=== PATIENT | male | born 1970 | race Two or more races ===

== ENCOUNTER 2024-04-04 11:41 | Inpatient (IN) | payer OTHER ==
[2024-04-04 12:04] VITALS: BMI 19.8
[2024-04-04] MEDS ORDERED: guaiFENesin 600 MG TABLET.ER (FP) PO PRN (14:04)
[2024-04-04] MEDS ORDERED: IBUPROFEN 600 MG TABLET (FP) PO PRN (14:04)
[2024-04-04] MEDS ORDERED: POLYETHYLENE GLYCOL (HEALTHYLAX) 3350 17 GM PACKET PO PRN (14:04)
[2024-04-04] MEDS ORDERED: NALOXONE (NYS OPIOID OVERDOSE PROGRAM) 4 MG/0.1 ML SPRAY NS PRN (14:04)
[2024-04-04] MEDS ORDERED: ACETAMINOPHEN 325 MG TABLET (FP) PO PRN (14:04)
[2024-04-04] MEDS ORDERED: NALOXONE (NARCAN) HCL 4 MG/0.1 ML SPRAY NS PRN (14:04)
[2024-04-04] MEDS ORDERED: NICOTINE POLACRILEX 2 MG GUM BUC PRN (14:04)
[2024-04-04] MEDS ORDERED: MAGNESIUM HYDROX 2400MG/30ML ORAL SUSPENSION 30 ML CUP PO PRN (14:04)
[2024-04-04] MEDS ORDERED: NICOTINE POLACRILEX 2 MG LOZENGE BC PRN (14:04)
[2024-04-04] MEDS ORDERED: P-EPHED 60MG/TRIPROLIDI 2.5MG TABLET PO PRN (14:04)
[2024-04-04] MEDS ORDERED: MAG HYDROX/AL HYDROX/SIMETH 30 ML UNIT-DOSE CUP PO PRN (14:04)
[2024-04-04] MEDS ORDERED: LOPERAMIDE HCL 2 MG CAPSULE PO PRN (14:04)
[2024-04-04] MEDS ORDERED: BENZOCAINE/MENTHOL (CHLORASEPTIC ) LOZENGE MM PRN (14:04)
[2024-04-04] MEDS ORDERED: BENZONATATE 200 MG CAPSULE PO PRN (14:04)
[2024-04-04] MEDS: TUBERCULIN PPD 5 TU/0.1ML VIAL ID ONE (19:23)
[2024-04-04] MEDS: THIAMINE 100 MG TABLET PO SCH (23:24)
[2024-04-04] MEDS: MELATONIN 5 MG TABLETS PO SCH (23:24)
[2024-04-05] MEDS ORDERED: methaDONE HCL 10 MG TABLET PO SCH (08:15)
[2024-04-05] MEDS: PRENATAL VITAMINS W/ FOLIC ACID TABLET (FP) PO SCH (09:05)
[2024-04-05 15:05] LABS: HEMATOCRIT 46.5 % (35.4-49); MCHC 34.4 g/dl (32.0-35.9); MEAN CELL VOLUME 93.2 fl (80-96); MEAN PLT VOLUME 11.1 fl (7.5-11.1); PLATELET COUNT 224 10^3/uL (134-434); RBC 4.99 M/mm3 (4.00-5.60); RDW 12.3 % (11.9-15.9); WHITE BLOOD COUNT 6.5 K/mm3 (4.0-10.0)
[2024-04-05 15:18] LABS: CHLORIDE 104 mmol/L (98-107); POTASSIUM 5.1 mmol/L (3.5-5.1); SODIUM 137 mmol/L (136-145)
[2024-04-05 15:22] LABS: ALBUMIN 4.2 g/dl (3.4-5.0); ANION GAP 5 mmol/L (4-13); BLOOD UREA NITROGEN 9.8 mg/dL (7-18); CALCIUM 9.5 mg/dL (8.5-10.1); CO2 28 mmol/L (21-32); GLUCOSE,RANDOM 121 mg/dL (74-106)
[2024-04-05 15:25] LABS: CREATININE 0.6 mg/dL (0.55-1.3); SGOT/AST 16 U/L (15-37); SGPT/ALT 14 U/L (13-61)
[2024-04-05 15:27] LABS: BILIRUBIN,TOTAL 0.6 mg/dL (0.2-1); TOT PROT 8.6 g/dl (6.4-8.2)
[2024-04-05 15:28] LABS: ALK PHOS 106 U/L (45-117)
[2024-04-05 17:10] LABS: SYPHILIS W/ RPR CONF NON-REACTIVE (NONREACTIVE)
[2024-04-06] MEDS: DICYCLOMINE HCL 10 MG CAPSULE PO PRN (18:28)
[2024-04-06] MEDS: BACLOFEN 10 MG TABLET (FP) PO SCH (23:08)
[2024-04-07] MEDS: ONDANSETRON *ODT* 4 MG TABLET SL PRN (05:33)
[2024-04-07] MEDS: hydrOXYzine PAMOATE 25 MG CAPSULE (FP) PO PRN (06:27)
[2024-04-07] MEDS: TRIMETHOBENZAMIDE HCL 200MG/2ML INJ IM ONE (07:41)
[2024-04-07 09:38] VITALS: RESP 18
[2024-04-07] MEDS: IBUPROFEN 400 MG TABLET (FP) PO PRN (11:18)
[2024-04-07 11:27] VITALS: BP 153/84; PULSE 60; TEMP 98.2
[2024-04-08] MEDS ORDERED: methaDONE HCL 10 MG TABLET PO SCH (06:00)
== END 2024-04-07 16:30 | disposition left against medical advice (07) | DRG 770 ==
LOC: YASAS 11:41 → Y5N 14:52
PROVIDERS: ADMIT Psychiatry & Neurology Pain Medicine; ATTEND Psychiatry & Neurology Pain Medicine
PROC: HZ42ZZZ Group Counseling for Substance Abuse Treatment, Cognitive-Behavioral (ICD-10-PCS; principal; 2024-04-04)
DX: F11.20 Opioid dependence, uncomplicated (principal); F14.20 Cocaine dependence, uncomplicated; F17.210 Nicotine dependence, cigarettes, uncomplicated; Z59.01 Sheltered homelessness; Z56.0 Unemployment, unspecified
CPT/HCPCS: 0241U-QW; 36415; 80053; 80305; 80307; 82962; 85027; 86780; 86803; 87522; 87811; 93005; 93010; Q0162

== ENCOUNTER 2024-04-07 11:55 | Emergency (ER) | payer OTHER ==
[2024-04-07 12:14] VITALS: RESP 19; BMI 22.0
[2024-04-07] MEDS ORDERED: HALOPERIDOL LACTATE 5 MG/ML ONE (12:44)
[2024-04-07] MEDS ORDERED: MAG HYDROX/AL HYDROX/SIMETH 30 ML UNIT-DOSE CUP ONE (12:45)
[2024-04-07] MEDS: MAG HYDROX/AL HYDROX/SIMETH 30 ML UNIT-DOSE CUP PO ONE (12:51)
[2024-04-07] MEDS: HALOPERIDOL LACTATE 5 MG/ML IM ONE (12:51)
[2024-04-07] MEDS: ONDANSETRON 4 MG/2 ML VIAL IVPUSH ONE (12:51)
[2024-04-07] MEDS ORDERED: FAMOTIDINE 20 MG/50 ML IVPB 20 MG/50 ML MG IVPB ONE (13:07)
[2024-04-07 13:12] LABS: BASO % 0.2 % (0-2.0); EOS % 0.3 % (0-4.5); HEMATOCRIT 50.5 % (35.4-49); HEMOGLOBIN 17.8 GM/dL (11.7-16.9); LYMPH % 5.7 % (8-40); MCH 31.9 pg (25.7-33.7); MCHC 35.2 g/dl (32.0-35.9); MEAN CELL VOLUME 90.6 fl (80-96); MEAN PLT VOLUME 8.3 fl (7.5-11.1); MONO % 4.2 % (3.8-10.2); NEUT % 89.6 % (42.8-82.8); PLATELET COUNT 282 10^3/uL (134-434); RBC 5.58 M/mm3 (4.00-5.60); RDW 12.7 % (11.9-15.9); WHITE BLOOD COUNT 13.4 K/mm3 (4.0-10.0)
[2024-04-07] MEDS: FAMOTIDINE 20 MG/50 ML IVPB 20 MG/50 ML MG IVPB ONE (13:12)
[2024-04-07 13:34] LABS: POTASSIUM 5.2 mmol/L (3.5-5.1)
[2024-04-07 13:36] LABS: CALCIUM 10.1 mg/dL (8.5-10.1)
[2024-04-07 13:37] LABS: ALBUMIN 4.5 g/dl (3.4-5.0); BLOOD UREA NITROGEN 11.4 mg/dL (7-18); MAGNESIUM 1.8 mg/dL (1.8-2.4)
[2024-04-07 13:40] LABS: CREATININE 0.8 mg/dL (0.55-1.3)
[2024-04-07 13:41] LABS: BILIRUBIN,TOTAL 0.6 mg/dL (0.2-1); TOT PROT 9.6 g/dl (6.4-8.2)
[2024-04-07 14:48] VITALS: BP 146/74; PULSE 72; TEMP 97.9
== END 2024-04-07 15:38 | disposition home or self-care (01) ==
LOC: JER 11:55
PROC: 3E033GC Introduction of Other Therapeutic Substance into Peripheral Vein, Percutaneous Approach (ICD-10-PCS; principal; 2024-04-07)
PROC: 3E023GC Introduction of Other Therapeutic Substance into Muscle, Percutaneous Approach (ICD-10-PCS; 2024-04-07)
DX: R11.2 Nausea with vomiting, unspecified (principal); R10.13 Epigastric pain
CPT/HCPCS: 0241U-QW; 36415; 80053; 83690; 83735; 85025; 93005; 93010; 96365; 96372; 99284-25